=== PATIENT | male | born 1990 | race Caucasian/White ===

== ENCOUNTER 2025-07-06 20:38 | Emergency (ER) | payer MEDICAID ==
[~2025-07-06] VITALS: Ht 172.7 cm; Wt 104.2 kg
[~2025-07-06 20:38] MED LIST: ASPI-1160 PO; LIP40 PO
[2025-07-06 20:47] VITALS: O2SAT 97
[2025-07-06 21:46] LABS: CLARITY URINE CLEAR (CLEAR); COLOR URINE YELLOW (YELLOW); GLUCOSE URINE NEGATIVE (NEGATIVE); KETONES URINE NEGATIVE (NEGATIVE); LEUKOCYTE ESTERASE URINE NEGATIVE (NEGATIVE); NITRITE URINE NEGATIVE (NEGATIVE); OCCULT BLOOD URINE NEGATIVE (NEGATIVE); PH URINE 6.0 (4.5-8.0); PROTEIN URINE NEGATIVE (NEGATIVE); SPECIFIC GRAVITY URINE 1.020 (1.005-1.030); UROBILINOGEN URINE 0.2 E.U./dL (0.2-1.0)
[2025-07-06 22:36] LABS: BASOPHILS % 1.3 % (0.0-2.0); EOSINOPHILS % 2.0 % (0.0-5.0); HEMATOCRIT. 41.6 % (42.0-52.0); HEMOGLOBIN. 14.0 g/dL (14.0-18.0); LYMPHOCYTES % 45.3 % (20.0-50.0); MEAN PLATELET VOLUME 9.3 fl (7.4-10.4); MONOCYTES % 9.9 % (2.0-8.0); NEUTROPHILS % 41.5 % (40.0-76.0); PLATELET 253 x1000/uL (130-400); RED BLOOD CELL COUNT 4.83 mill/uL (4.7-6.1); RED CELL DISTRIBUTION WIDTH 13.1 % (11.6-14.6)
[2025-07-06 22:46] LABS: CREATININE 0.8 mg/dL (0.6-1.3)
[2025-07-06 22:47] LABS: UREA NITROGEN BLOOD 15 mg/dL (9-23)
[2025-07-06 22:48] LABS: ASPARTATE AMINOTRANSFERASE 18 IU/L (<34)
[2025-07-06 22:49] LABS: BILIRUBIN DIRECT 0.1 mg/dL (<=3.0); BILIRUBIN TOTAL 0.4 mg/dL (0.1-1.0); PROTEIN TOTAL 7.0 g/dL (6.0-8.3)
[2025-07-07 00:45] VITALS: BP 128/83; PULSE 78; RESP 19; TEMP 36.8; O2SAT 97
== END 2025-07-07 00:46 | disposition home or self-care (01) ==
LOC: ER 20:38
DX: R39.11 Hesitancy of micturition (principal); R10.2 Pelvic and perineal pain; R30.9 Painful micturition, unspecified; Z79.899 Other long term (current) drug therapy; Z79.82 Long term (current) use of aspirin
CPT/HCPCS: 36415; 74176; 80048; 80076; 81003; 85025; 99284